=== PATIENT | male | born 1990 | race American Indian/Alaskan Native ===

== ENCOUNTER 2019-03-25 15:18 | Emergency (ER) | payer OTHER ==
[2019-03-25 16:11] VITALS: BP 121/70
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
== END 2019-03-25 18:49 | disposition home or self-care (01) ==
LOC: ED 15:18
DX: T70.0XXA Otitic barotrauma, initial encounter (principal); M54.5 Low back pain; F17.200 Nicotine dependence, unspecified, uncomplicated; Z79.899 Other long term (current) drug therapy; V89.2XXA Person injured in unspecified motor-vehicle accident, traffic, initial encounter; Y93.89 Activity, other specified; Y92.488 Other paved roadways as the place of occurrence of the external cause; Y99.8 Other external cause status
CPT/HCPCS: 72100; 99283